=== PATIENT | female | born 1955 | race Caucasian/White ===

== ENCOUNTER 2019-12-31 21:56 | Emergency (ER) | payer MEDICARE, MEDICAID ==
[~2019-12-31] VITALS: Ht 170.2 cm; Wt 75.0 kg
[~2019-12-31 21:56] MED LIST: ALBU18HF INH; AMLO-150 PO; ASPI-496 PO; ATOR10TA9 PO; CYCL-259 PO; HYDR-3245 PO; HYDR-3653 PO; LISI-170 PO; RANI150C PO
[2019-12-31 21:59] VITALS: BP 163/104
== END 2019-12-31 22:22 | disposition home or self-care (01) ==
LOC: ED 22:00
DX: S00.33XA Contusion of nose, initial encounter (principal); W01.0XXA Fall on same level from slipping, tripping and stumbling without subsequent striking against object, initial encounter; Y93.89 Activity, other specified; Y92.488 Other paved roadways as the place of occurrence of the external cause; Y99.8 Other external cause status
CPT/HCPCS: 99281